=== PATIENT | female | born 1965 | race Caucasian/White ===

== ENCOUNTER 2024-08-13 11:36 | Emergency (ER) | payer BC, MEDICAID ==
[2024-08-13] MEDS: LIDOCAINE 4% PATCH TOPICAL ONE (13:02)
[2024-08-13] MEDS: MELOXICAM 7.5 MG TAB PO STA (13:06)
--- NOTE | 2024-08-13 13:17 | CT ---
EXAMINATION TYPE: CT chest wo con CT DLP: 666.4 mGycm, Automated exposure control for dose reduction was used. DATE OF EXAM: 08/13/2024 1:08 PM COMPARISON: CT chest 08/13/2014 CLINICAL INDICATION:Female, 59 years old with history of left sided rib pain; [facility], TECHNIQUE: Multiple axial images were obtained through the chest without IV contrast. Lack of IV or o ral contrast limits evaluation of solid and hollow organ viscera. . Coronal and sagittal reformats re viewed. FINDINGS: LUNGS/ PLEURA: No pneumothorax or focal consolidation. Trace left pleural effusion with some minimal subsegmental atelectasis. Punctate calcified granuloma within the anterior right midlung. No suspici ous pulmonary nodules or masses. AIRWAY: Patent and unremarkable.. HEART: Size within normal limits.No pericardial effusion. MEDIASTINUM: No gross evidence of adenopathy. VASCULATURE: No aortic aneurysm. MUSCULOSKELETAL: Acute nondisplaced left lateral 4-6 rib fractures. Mild multilevel degenerative dise ase. SOFT TISSUES/LYMPH NODES: Unremarkable. LOWER NECK: No significant findings. UPPER ABDOMEN: No significant findings. IMPRESSION: 1. Acute nondisplaced left lateral 4-6 rib fractures. 2. Trace left pleural effusion. No pneumothorax. [facility], , 08/13/2024 1:15 PM
--- NOTE | 2024-08-13 13:43 | ED ---
General Adult HPI - General Chief complaint: Fall Stated complaint: Fall Time Seen by Provider: 08/13/24 12:00 Source: patient, RN notes reviewed, old records reviewed Mode of arrival: ambulatory Limitations: no limitations - History of Present Illness Initial comments: Patient is a 59-year-old female who presents with left rib pain. Patient has been using pain medications at home to treat suspected rib fracture injury. Had x-ray obtained at urgent care which was negative and instructed to come to the emergency department for further evaluation if pain persisted. Pain has persisted which is why she presents. Has no other acute complaints. Denies any cough or fevers. Denies any other chest pain. Denies any other falls or injuries. States pain is pinpoint over the left lateral chest wall over the area of 2 ribs. No radiation of the pain. No other acute complaints. - Related Data Home Medications Medication Instructions Recorded Confirmed Enalapril/Hydrochlorothiazide 1 tab PO DAILY 05/31/14 02/13/22 [Enalapril-Hctz 10-25 mg Tablet] Levothyroxine Sodium [Synthroid] 125 mcg PO DAILY 02/08/22 02/13/22 Loratadine-Pseudoeph 5-120 mg 1 tab PO Q12HR PRN 02/08/22 02/13/22 [Claritin-D 12 Hour] Previous Rx's Medication Instructions Recorded Cyclobenzaprine [Flexeril] 5 mg PO TID PRN 7 Days #21 tablet 08/13/24 Lidocaine 5% Patch [Lidoderm 5% 1 patch TOPICAL DAILY PRN 14 Days 08/13/24 Patch] #14 patch Meloxicam [Mobic] 7.5 mg PO DAILY PRN 7 Days #7 tab 08/13/24 Allergies Allergy/AdvReac Type Severity Reaction Status Date / Time No Known Allergies Allergy Verified 08/13/24 11:43 Review of Systems ROS Statement: Those systems with pertinent positive or pertinent negative responses have been documented in the HPI. Review of Systems: CONST: Denies fever EYES: Denies blurry vision ENT: Denies nasal congestion C/V: Denies Chest pain RESP: Denies shortness of breath GI: Denies abdominal pain : Denies dysuria SKIN: Denies rash. MSK: Endorses rib pain NEURO: Denies headache ROS Other: All systems not noted in ROS Statement are negative. Past Medical History Past Medical History: GERD/Reflux, Hypertension, Thyroid Disorder Additional Past Medical History / Comment(s): overactive bladder, hx anemia, History of Any Multi-Drug Resistant Organisms: None Reported Past Surgical History: Orthopedic Surgery Additional Past Surgical History / Comment(s): D&C, rt carpal tunnel Past Anesthesia/Blood Transfusion Reactions: No Reported Reaction Past Psychological History: No Psychological Hx Reported Smoking Status: Never smoker - Past Family History Father Family Medical History: Cancer Additional Family Medical History / Comment(s): colon General Exam - General Exam Comments Initial Comments: General: Appears in no acute distress. HEAD: Normal with no signs of head trauma. EYES: EOMI. ENT: Hearing grossly intact. RESPIRATORY: No respiratory distress. Clear breath sounds bilaterally. C/V: Regular rate and rhythm. ABD: Abdomen is nondistended. EXT: Tenderness to palpation over the left fifth and sixth ribs in the midaxillary line. No step-offs or deformities appreciated. SKIN: No rashes or lesions observed on exposed skin. NEURO: Alert and oriented. Limitations: no limitations Course Vital Signs 08/13/24 11:43 Temperature 97.6 F Pulse Rate 76 Respiratory 18 Rate Blood Pressure 157/86 O2 Sat by Pulse 98 Oximetry Medical Decision Making - Medical Decision Making Was pt. sent in by a medical professional or institution (, PA, DASHBOARD DEVELOPER, urgent care, hospital, or skilled nursing...) When possible be specific @ -No Did you speak to anyone other than the patient for history (EMS, parent, family, police, friend...)? What history was obtained from this source @ -No Did you review nursing and triage notes (agree or disagree)? Why? @ -I reviewed and agree with nursing and triage notes Were old charts reviewed (outside hosp., previous admission, EMS record, old EKG, old radiological studies, urgent care reports/EKG's, skilled nursing records)? Report findings @ -No old charts were reviewed Differential Diagnosis (chest pain, altered mental status, abdominal pain women, abdominal pain men, vaginal bleeding, weakness, fever, dyspnea, syncope, headache, dizziness, GI bleed, back pain, seizure, CVA, palpatations, mental health, musculoskeletal)? @ -Rib fracture, rib contusion, pneumothorax. This list is not inclusive. EKG interpreted by me (3pts min.). @ -None done X-rays interpreted by me (1pt min.). @ -None done CT interpreted by me (1pt min.). @ -CT imaging revealed no evidence of pneumothorax or lung injury but patient does have nondisplaced lateral rib fractures of ribs 4 through 6. U/S interpreted by me (1pt. min.). @ -None done What testing was considered but not performed or refused? (CT, X-rays, U/S, labs)? Why? @ -None What meds were considered but not given or refused? Why? @ -None Did you discuss the management of the patient with other professionals (professionals i.e. , PA, DASHBOARD DEVELOPER, lab, RT, psych nurse, social services counselor, rehabilitation construction specialist, teacher, licensed loan officer assistant, returned case inspector)? Give summary @ -No Was smoking cessation discussed for >3mins.? @ -No Was critical care preformed (if so, how long)? @ -No Were there social determinants of health that impacted care today? How? (Homelessness, low income, unemployed, alcoholism, drug addiction, transportation, low edu. Level, literacy, decrease access to med. care, assisted, rehab)? @ -No Was there de-escalation of care discussed even if they declined (Discuss DNR or withdrawal of care, Hospice)? DNR status @ -No What co-morbidities impacted this encounter? (DM, HTN, Smoking, COPD, CAD, Cancer, CVA, ARF, Chemo, Hep., AIDS, mental health diagnosis, sleep apnea, morbid obesity)? @ -None Was patient admitted / discharged? Hospital course, mention meds given and route, prescriptions, significant lab abnormalities, going to OR and other pertinent info. @ -Based on patient's presentation and physical exam, presents emergency department complaining of left rib pain. Concern for rib fracture. X-ray obtained in urgent care on Saturday when she fell however still having symptoms and therefore presents for CT imaging as instructed by urgent care. Patient will be given lidocaine patch as well as a dose of Mobic. We will obtain CT imaging. Patient was in agreement this plan. CT imaging shows multiple rib fractures that are nondisplaced. No other fi nding. I updated patient. She will be discharged home with instructions to have light workload as well as rest. She will be given pain meds for home. She will be given an incentive spirometer as well as instructions on how to use it. Strict return precautions discussed including findings of pneumonia. Patient was in agreement this plan. I will provide the patient with a prescription for Flexeril, Mobic, lidocaine patch. I instructed the patient to follow up with their PCP in the next 1-3 days.. I explained that the patient should return to the emergency department if they experience any worsening symptoms. Strict return precautions were discussed with the patient. The patient expressed understanding of these instructions. I answered all questions that the patient had. The patient was discharged home in good condition with their prescriptions and follow up information. Undiagnosed new problem with uncertain prognosis? @ -No Drug Therapy requiring intensive monitoring for toxicity (Heparin, Nitro, Insulin, Cardizem)? @ -No Were any procedures done? @ -No Diagnosis/symptom? @ -Multiple rib fractures Acute, or Chronic, or Acute on Chronic? @ -Acute Uncomplicated (without systemic symptoms) or Complicated (systemic symptoms)? @ -Uncomplicated Side effects of treatment? @ -No Exacerbation, Progression, or Severe Exacerbation? @ -No Poses a threat to life or bodily function? How? (Chest pain, [place], [place], pneumonia, PE, COPD, DKA, ARF, appy, cholecystitis, CVA, Diverticulitis, Homicidal, Suicidal, threat to staff... and all critical care pts) @ -Unlikely Disposition Clinical Impression: Multiple rib fractures Disposition: HOME SELF-CARE Condition: Good Instructions (If sedation given, give patient instructions): How to Use an Incentive Spirometer (ED), Rib Fracture (ED), Fall Prevention (ED) Prescriptions: Cyclobenzaprine [Flexeril] 5 mg PO TID PRN 7 Days #21 tablet PRN Reason: Pain Lidocaine 5% Patch [Lidoderm 5% Patch] 1 patch TOPICAL DAILY PRN 14 Days #14 patch PRN Reason: Pain Meloxicam [Mobic] 7.5 mg PO DAILY PRN 7 Days #7 tab PRN Reason: Pain Is patient prescribed a controlled substance at d/c from ED?: No Referrals: Hunter Morales MD [Primary Care Provider] - 1-2 days Time of Disposition: 13:40
[2024-08-13] MEDS: ACET/COD 300 MG/30 MG STARTER PACK 6 TAB BTL PO STA (13:56)
[2024-08-13 14:48] VITALS: BP 148/83; PULSE 70; RESP 16; TEMP 98.1
== END 2024-08-13 14:48 | disposition home or self-care (01) ==
LOC: EC 11:36
DX: S22.42XA Multiple fractures of ribs, left side, initial encounter for closed fracture (principal); X58.XXXA Exposure to other specified factors, initial encounter
CPT/HCPCS: 71250; 99283